=== PATIENT | female | born 1960 ===

== ENCOUNTER 2022-09-10 01:48 | Outpatient (CLI) | payer BC, SELFPAY ==
[2022-09-10] MEDS: Barium Sulfate 2% W/V-Berry Smoothie 450 ML BTL PO ×2 (07:36→07:37)
[2022-09-10 07:43] LABS: Anion Gap 8.8 mmol/L (3-11); BUN 21 mg/dL (7-18); CO2 28.2 mmol/L (21.0-32.0); CREATININE 0.8 mg/dL (0.55-1.02); Calcium 9.2 mg/dL (8.5-10.1); Chloride 106 mmol/L (98-107); Estimated GFR 83.78 (mL/min/1.73m2); Glucose 106 mg/dL (74-106); Potassium 4.2 mmol/L (3.5-5.1); Sodium 143 mmol/L (136-145)
--- NOTE | 2022-09-10 09:00 | DI.CT_ITS ---
Exam(s) CT ABDOMEN PELVIS W EXAM: CT ABDOMEN PELVIS W CLINICAL HISTORY: UNSPECIFIED ABD PAIN, R10.9; ABD DISTENSION, R14.0. TECHNIQUE: Imaging Protocol: Axial computed tomography images with coronal and sagittal reformatted images were created and reviewed CONTRAST MATERIAL: Intravenous: Omnipaque-350 100cc Oral: Yes. Oral contrast was also administered for bowel opacification. COMPARISON: No exams were available for comparison FINDINGS: VISUALIZED LUNG BASES: No nodules nor pleural effusions evident. ABDOMEN: There is no ascites. LIVER: No masses. No dilated intrahepatic ducts. GALLBLADDER/BILIARY: No obvious gallbladder pathology. CBD is not dilated. PANCREAS: No evidence of pancreatic mass nor dilatation of the pancreatic duct. SPLEEN: Spleen is not enlarged. No obvious intrasplenic lesions. Splenic and portal veins are paten t. ADRENALS: There are no significant adrenal masses. KIDNEYS:No cysts evident. No solid renal masses. No calculi nor hydronephrosis.. ABDOMINAL AORTA: Abdominal aorta is not enlarged. LYMPH NODES:There is no retroperitoneal nor paraaortic adenopathy. ABDOMINAL WALL: Anterior abdominal wall hernia sac which contains multiple non edematous small bowel loops on both sides of the midline. There may actually be 2 separate contiguous anterior abdominal h ernias at this level. The bowel loops noted therein are non edematous and not obstructed at this godfrey e. There also appears to be a 3rd smaller hernia sac at this level contains a knuckle of small bowel , also not edematous nor obviously obstructed at this time. There is no element of transverse colon located within these anterior abdominal hernia sacs. GI: There is abundant fecal material noted throughout the colon. There is a hyperdensity in the sigm oid which may be a clip from prior polyp removal during colonoscopy PELVIS: GI: No evidence of appendicitis.No evidence of sigmoid diverticulitis. LYMPH NODES: There is no intrapelvic nor inguinal adenopathy. REPRODUCTIVE: Uterus is surgically absent. No abnormal adnexal masses. No free fluid. URINARY BLADDER: Mild uniform thickening of the bladder wall, possibly related to chronic cystitis. There is no air-gas in the bladder wall. No radiopaque calculi seen within the nondistended bladder lumen. OSSEOUS: No fractures and no significant osseous lesions. IMPRESSION: 1. The main finding here is 3 contiguous anterior abdominal wall hernia sacs which contain multiple s mall bowel loops (no large bowel). There is no bowel obstruction at this time. These bowel loops do not appear obviously edematous. There is no prominent fat streaking nor fluid within the anterior abdominal wall hernia sacs. 2. Uniform bladder wall thickening, possibly related to chronic cystitis. 3. Uterus surgically absent. No abnormal adnexal findings. RADIATION DOSE DELIVERED: 1,196.26mGy.cm Total DLP DATA REPOSITORY: All CT scans at this facility are submitted to the National Radiology Data Registry (NRDR) Dose Index Registry (DIR) with the [employer] ([employer]). RADIATION OPTIMIZATION: All CT scans at this facility use at least one of these dose optimization te chniques: automated exposure control; mA and/or kV adjustment per patient size (includes targeted exa ms where dose is matched to clinical indication); or iterative reconstruction.
[2022-09-10] MEDS: Omnipaque 350 MG/ML 500 ML BTL-Imaging package 100 ML IJ (09:05)
[2022-09-10] MEDS: Normal Saline - Diluent 50 ML VIAL IJ (09:06)
== END 2022-09-10 02:08 ==
LOC: DI 01:48
PROVIDERS: PCP Internal Medicine; Visit Provider Internal Medicine Gastroenterology
DX: R14.0 Abdominal distension (gaseous) (principal); K43.9 Ventral hernia without obstruction or gangrene; N32.89 Other specified disorders of bladder; Z90.710 Acquired absence of both cervix and uterus; R10.9 Unspecified abdominal pain
CPT/HCPCS: 80048; 74177